=== PATIENT | male | born 1975 | race African-American/Black ===

== ENCOUNTER 2016-12-11 09:22 | Emergency (ER) | payer MEDICAID ==
[~2016-12-11] VITALS: Ht 175.3 cm; Wt 112.0 kg
[2016-12-11] MEDS ORDERED: KETOROLAC 60MG/2ML VIAL IM ONE (10:15)
[2016-12-11 10:21] VITALS: BP 140/86
== END 2016-12-11 12:59 | disposition home or self-care (01) ==
LOC: ER 10:17
DX: M25.511 Pain in right shoulder (principal); I10 Essential (primary) hypertension; F17.210 Nicotine dependence, cigarettes, uncomplicated; F12.10 Cannabis abuse, uncomplicated; Z87.828 Personal history of other (healed) physical injury and trauma
CPT/HCPCS: 73030; 96372; 99284; J1885; Z7610